=== PATIENT | male | born 1960 | race Caucasian/White ===

== ENCOUNTER 2016-06-07 11:05 | Emergency (ER) | payer OTHER ==
--- NOTE | 2016-06-07 12:25 | DIAGNOSTIC IMAGING REPORT ---
PROCEDURE: XR FEMUR - LEFT INDICATION: TRAUMA/INJURY TECHNIQUE: Four views of the left femur. COMPARISON: None available. FINDINGS: The femur fractures been fixed with an intramedullary susie and a pin through the femoral neck. Cerclage wires intact. Two screws are through the intramedullary susie in the distal femur. There is no fracture or dislocation. Alignment is anatomic. IMPRESSION: 1. No fracture or dislocation. Anatomic alignment status post fixation of fracture through the proximal femoral shaft.
--- NOTE | 2016-06-07 13:38 | ED ORDER SUMMARY ---
..... Patient: BALBIR SCHNEIDER OrderSheet [facility] VisitID: [id number] [address] [place] [address] 56y, M Registration Date/Time: 06/07/2016 ORDER SHEET Weight: 86.1 kg (stated) Allergies: No Known Drug Allergy GENERAL ORDERS: Femur Left Urgent (11:50 06/07/2016 Elizabeth Alberts) (k 11:51 TBergley) (12:40 LSullivan R.N.) MEDICATION ORDERS: Toradol IM 60 mg (NOW) (11:50 06/07/2016 Elizabeth Alberts) (12:40 LSaramivan R.N.) IV FLUIDS: ORDER SHEET NOTES: [Electronically signed by Anusha Martel R.N. (14:36 06/07/2016)] [Electronically signed by Lukas Zamora Dr. (19:34 06/08/2016)] [Electronically locked/signed by Ansuha Martel R.N. (14:36 06/07/2016)]
--- NOTE | 2016-06-07 13:38 | ED NURSING NOTES ---
Clinical Report - Nurses [place] [address] [place] [address] 06/07/2016 11:10 [id number] TRI[facility] Triage time 11:09. Acuity: LEVEL 4. Chief Complaint: INJURY TO THE LEFT HIP. NANI COMA SCORE: Nani Coma Scale: 15- eyes open spontaneously (4); best verbal response- oriented x 4 (5); best motor response- obeys commands (6). --11:16 Pari Moeller R.N. 11:09 06/07/16. BP: 160/85. HR: 76. RR: 18. O2 saturation: 95%. Temp: 98.4 F. Pain level now: 11/05. --11:16 Pari Moeller R.N. Weight: 86.1 kg stated. Height/Length: 69 inches Per Patient. BMI: 28.1. --11:12 Pari Moeller R.N. Medications OxyCODONE HCl Oral. --11:14 Pari Moeller R.N. Atenolol Oral not taking. Lisinopril Oral not taking. --11:14 Pari Moeller R.N. Allergies No Known Drug Allergy. --11:12 Pari Moeller R.N. History Arrived by EMS. Primary physician (August Buckley for orthopedics). ( Pt fell out of wheelchair, onto left hip, had left femur surgery 3 weeks ago and had nurse at [facility] clinic call 911.). This occurred yesterday. Treatment COAT PRESSER: None. (1/2 BEER). SOCIAL HX: Light tobacco smoker (cigarette)- less than 1/2 a pack per day. Alcohol use. Patient is a recovering alcoholic. (Pt has not drank since surgery date 3 weeks ago). No drug use. --11:16 Pari Moeller R.N. PROBLEMS: Hypertension. Heart Disease. --11:16 Pari Moeller R.N. ADDITIONAL SURGERIES: Appendectomy. --11:16 Pari Moeller R.N. Interventions ID band on patient. To room. --11:16 Pari Moeller R.N. PHYSICAL ASSESSMENT 11:16 06/07/16. GENERAL / NEURO / PSYCH: Oriented X 4. Alert. Appears anxious. --11:16 Pari Moeller R.N. 11:18 06/07/16. GENERAL / NEURO / PSYCH: ( no signs of abnormalities, rotation of left leg, or deformities). --11:18 Pari Moeller R.N. NURSING PROGRESS NOTES 11:17 06/07/16. Patient identifiers checked. Call light placed in reach. Bed placed in lowest position. Patient ready for evaluation- chart flagged. --11:17 Pari Moeller R.N. 12:40 06/07/2016 Toradol (Ketorolac Tromethamine) IM 60 mg given. Allergies verified and confirmed 5 rights. --12:40 Pari Moeller R.N. 12:15 06/07/16. BP: 174/83. HR: 78. RR: 18. O2 saturation: 96%. Pain level now: 710. --12:41 Pari Moeller R.N. 12:41 06/07/16. BP: 171/104. HR: 72. RR: 18. O2 saturation: 97%. --12:41 Pari Moeller R.N. 13:16 06/07/16. ( When pt falls asleep, sats drop to 80's, noticed pt has obstructive sleep apnea, positioned head and neck in better position for breathing.). --13:16 Pari Moeller R.N. 14:10. The patient is sleeping. Overall patient status is improved- he states feels better (called a friend in [place], [place] for a pick-up, wet clothes placed in a bag, father's pack scrubs put on assisted by EDT). GENERAL / NEURO / PSYCH: Alert. Oriented X 4. RESPIRATORY: No respiratory distress. SKIN: Skin is warm and dry. --14:34 Anusha Martel R.N. DISPOSITION / DISCHARGE Departure time: 1410. Condition at departure: stable. Fall risk assessment completed. Risk factors identified include patient impairment of mobility. Fall interventions initiated. Patient placed in wheelchair. No learning barriers present. Discharge instructions provided and reviewed with the patient. Patient verbalized understanding. Written instructions provided in Georgian. The patient was discharged home and accompanied by called for friend to pick him up. He left the Emergency Department in a wheelchair and via private vehicle. --14:32 Anusha Martel R.N. 14:10 06/07/16. BP: 133/92. HR: 103. RR: 18. O2 saturation: 98% on room air. Pain level now: 09/05. --14:32 Anusha Martel R.N. Locked/Released at 06/07/2016 14:36 by Anusha Martel R.N.
--- NOTE | 2016-06-07 13:38 | ED CLINICAL REPORT ---
Clinical Report - Physicians/Mid Levels [facility] [address] [place] [address] 06/07/2016 11:10 [id number] Time Seen: 11:10; initial patient contact. Arrived- By ambulance. Historian- patient. HISTORY OF PRESENT ILLNESS Chief Complaint: FALL. LEFT HIP INJURY. The injury occurred yesterday. Fell and landed on the ground (out of his wheel chair). Occurred at home. The patient complains of mild pain. No blow to the head, neck pain or loss of consciousness. REVIEW OF SYSTEMS No numbness, weakness or laceration. All systems otherwise negative, except as recorded above. PAST HISTORY Hypertension. Heart Disease. ADDITIONAL SURGERIES: Appendectomy. L Total hip. SOCIAL HISTORY Current every day smoker. Alcohol use. Patient is a recovering alcoholic. No drug use. ADDITIONAL NOTES The nursing notes have been reviewed with agreement regarding the chief complaint, PMH and patient medications and allergies. PHYSICAL EXAM Appearance: Alert. Oriented X3. No acute distress. Head: Head non-tender. No swelling of head. ENT: No dental injury. Neck: Painless ROM. Non-tender. CVS: Heart sounds normal. Rate normal. Rhythm normal. Respiratory: No respiratory distress. Breath sounds normal. Abdomen: No visible injury. Soft and nontender. Back: No tenderness. ROM normal. Skin: Skin intact. Skin warm and dry. Extremities: Left hip: mild tenderness. (well healed surgical wound). No erythema, swelling, laceration, abrasion or ecchymosis. Neuro: Oriented X 3. No motor deficit. No sensory deficit. LABS, X-RAYS, AND EKG Lt Femur X-ray: (No fracture or dislocation. Anatomic alignment status post fixation of fracture through the proximal femoral shaft.). Technique: good. The X-rays were independently viewed by me, interpreted by the radiologist and contemporaneously by me and discussed with the radiologist. Prior films were not available for comparison. Interpretation time: 12:38. PROGRESS AND PROCEDURES Disposition: Discharged home in good and improved condition. Condition: good. CLINICAL IMPRESSION Contusion to the left hip. INSTRUCTIONS Apply ice for 20 minutes four times a day. Don't apply ice directly to skin. No weight bearing left leg until released. Your Current Medications: CONTINUE TAKING THE FOLLOWING MEDICATIONS: Atenolol Oral : not taking. Lisinopril Oral : not taking. OxyCODONE HCl Oral. Follow-up: Follow up with your doctor in about four days. Call for an appointment. Blood pressure screening was not performed during this visit because the patient has an active diagnosis of hypertension. The patient should follow up with a primary care provider for blood pressure management. (Electronically signed by Lukas Zamora Dr. 06/08/2016 19:34)
--- NOTE | 2016-06-07 13:38 | ED ORDER SUMMARY ---
..... Patient: BALBIR SCHNEIDER OrderSheet [facility] VisitID: [id number] [address] [place] [address] 56y, M Registration Date/Time: 06/07/2016 ORDER SHEET Weight: 86.1 kg (stated) Allergies: No Known Drug Allergy GENERAL ORDERS: Femur Left Urgent (11:50 06/07/2016 Elizabeth Alberts) (k 11:51 TBergley) (12:40 LSullivan R.N.) MEDICATION ORDERS: Toradol IM 60 mg (NOW) (11:50 06/07/2016 Elizabeth Alberts) (12:40 LSaramivan R.N.) IV FLUIDS: ORDER SHEET NOTES: [Electronically signed by Anusha Martel R.N. (14:36 06/07/2016)] [Electronically signed by Lukas Zamora Dr. (19:34 06/08/2016)] [Electronically locked/signed by Anusha Martel R.N. (14:36 06/07/2016)]
--- NOTE | 2016-06-07 13:38 | ED NURSING NOTES ---
Clinical Report - Nurses [place] [address] [place] [address] 06/07/2016 11:10 [id number] TRI[facility] Triage time 11:09. Acuity: LEVEL 4. Chief Complaint: INJURY TO THE LEFT HIP. NANI COMA SCORE: Nani Coma Scale: 15- eyes open spontaneously (4); best verbal response- oriented x 4 (5); best motor response- obeys commands (6). --11:16 Pari Moeller R.N. 11:09 06/07/16. BP: 160/85. HR: 76. RR: 18. O2 saturation: 95%. Temp: 98.4 F. Pain level now: 11/05. --11:16 Pari Moeller R.N. Weight: 86.1 kg stated. Height/Length: 69 inches Per Patient. BMI: 28.1. --11:12 Pari Moeller R.N. Medications OxyCODONE HCl Oral. --11:14 Pari Moeller R.N. Atenolol Oral not taking. Lisinopril Oral not taking. --11:14 Pari Moeller R.N. Allergies No Known Drug Allergy. --11:12 Pari Moeller R.N. History Arrived by EMS. Primary physician (August Buckley for orthopedics). ( Pt fell out of wheelchair, onto left hip, had left femur surgery 3 weeks ago and had nurse at [facility] clinic call 911.). This occurred yesterday. Treatment ASSISTANT CENTER DIRECTOR: None. (1/2 BEER). SOCIAL HX: Light tobacco smoker (cigarette)- less than 1/2 a pack per day. Alcohol use. Patient is a recovering alcoholic. (Pt has not drank since surgery date 3 weeks ago). No drug use. --11:16 Pari Moeller R.N. PROBLEMS: Hypertension. Heart Disease. --11:16 Pari Moeller R.N. ADDITIONAL SURGERIES: Appendectomy. --11:16 Pari Moeller R.N. Interventions ID band on patient. To room. --11:16 Pari Moeller R.N. PHYSICAL ASSESSMENT 11:16 06/07/16. GENERAL / NEURO / PSYCH: Oriented X 4. Alert. Appears anxious. --11:16 Pari Moeller R.N. 11:18 06/07/16. GENERAL / NEURO / PSYCH: ( no signs of abnormalities, rotation of left leg, or deformities). --11:18 Pari Moeller R.N. NURSING PROGRESS NOTES 11:17 06/07/16. Patient identifiers checked. Call light placed in reach. Bed placed in lowest position. Patient ready for evaluation- chart flagged. --11:17 Pari Moeller R.N. 12:40 06/07/2016 Toradol (Ketorolac Tromethamine) IM 60 mg given. Allergies verified and confirmed 5 rights. --12:40 Pari Moeller R.N. 12:15 06/07/16. BP: 174/83. HR: 78. RR: 18. O2 saturation: 96%. Pain level now: 710. --12:41 Pari Moeller R.N. 12:41 06/07/16. BP: 171/104. HR: 72. RR: 18. O2 saturation: 97%. --12:41 aPri Moeller R.N. 13:16 06/07/16. ( When pt falls asleep, sats drop to 80's, noticed pt has obstructive sleep apnea, positioned head and neck in better position for breathing.). --13:16 Pari Moeller R.N. 14:10. The patient is sleeping. Overall patient status is improved- he states feels better (called a friend in [place], [place] for a pick-up, wet clothes placed in a bag, father's pack scrubs put on assisted by EDT). GENERAL / NEURO / PSYCH: Alert. Oriented X 4. RESPIRATORY: No respiratory distress. SKIN: Skin is warm and dry. --14:34 Anusha Martel R.N. DISPOSITION / DISCHARGE Departure time: 1410. Condition at departure: stable. Fall risk assessment completed. Risk factors identified include patient impairment of mobility. Fall interventions initiated. Patient placed in wheelchair. No learning barriers present. Discharge instructions provided and reviewed with the patient. Patient verbalized understanding. Written instructions provided in Thai. The patient was discharged home and accompanied by called for friend to pick him up. He left the Emergency Department in a wheelchair and via private vehicle. --14:32 Anusha Martel R.N. 14:10 06/07/16. BP: 133/92. HR: 103. RR: 18. O2 saturation: 98% on room air. Pain level now: 09/05. --14:32 Anusha Martel R.N. Locked/Released at 06/07/2016 14:36 by Anusha Martel R.N.
--- NOTE | 2016-06-07 13:38 | ED CLINICAL REPORT ---
Clinical Report - Physicians/Mid Levels [facility] [address] [place] [address] 06/07/2016 11:10 [facility]IR [facility]ID[id number] Time Seen: 11:10; initial patient contact. Arrived- By ambulance. Historian- patient. HISTORY OF PRESENT ILLNESS Chief Complaint: FALL. LEFT HIP INJURY. The injury occurred yesterday. Fell and landed on the ground (out of his wheel chair). Occurred at home. The patient complains of mild pain. No blow to the head, neck pain or loss of consciousness. REVIEW OF SYSTEMS No numbness, weakness or laceration. All systems otherwise negative, except as recorded above. PAST HISTORY Hypertension. Heart Disease. ADDITIONAL SURGERIES: Appendectomy. L Total hip. SOCIAL HISTORY Current every day smoker. Alcohol use. Patient is a recovering alcoholic. No drug use. ADDITIONAL NOTES The nursing notes have been reviewed with agreement regarding the chief complaint, PMH and patient medications and allergies. PHYSICAL EXAM Appearance: Alert. Oriented X3. No acute distress. Head: Head non-tender. No swelling of head. ENT: No dental injury. Neck: Painless ROM. Non-tender. CVS: Heart sounds normal. Rate normal. Rhythm normal. Respiratory: No respiratory distress. Breath sounds normal. Abdomen: No visible injury. Soft and nontender. Back: No tenderness. ROM normal. Skin: Skin intact. Skin warm and dry. Extremities: Left hip: mild tenderness. (well healed surgical wound). No erythema, swelling, laceration, abrasion or ecchymosis. Neuro: Oriented X 3. No motor deficit. No sensory deficit. LABS, X-RAYS, AND EKG Lt Femur X-ray: (No fracture or dislocation. Anatomic alignment status post fixation of fracture through the proximal femoral shaft.). Technique: good. The X-rays were independently viewed by me, interpreted by the radiologist and contemporaneously by me and discussed with the radiologist. Prior films were not available for comparison. Interpretation time: 12:38. PROGRESS AND PROCEDURES Disposition: Discharged home in good and improved condition. Condition: good. CLINICAL IMPRESSION Contusion to the left hip. INSTRUCTIONS Apply ice for 20 minutes four times a day. Don't apply ice directly to skin. No weight bearing left leg until released. Your Current Medications: CONTINUE TAKING THE FOLLOWING MEDICATIONS: Atenolol Oral : not taking. Lisinopril Oral : not taking. OxyCODONE HCl Oral. Follow-up: Follow up with your doctor in about four days. Call for an appointment. Blood pressure screening was not performed during this visit because the patient has an active diagnosis of hypertension. The patient should follow up with a primary care provider for blood pressure management. (Electronically signed by Lukas Zamora Dr. 06/08/2016 19:34)
--- NOTE | 2016-06-08 19:34 | ED DISCHARGE INSTRUCTIONS ---
Patient: BALBIR SCHNEIDER General Instructions [facility] VisitID: [id number] [place] [address] 56y, M Registration Date/Time: 06/07/2016 Contusion to the left hip. INSTRUCTIONS Apply ice for 20 minutes four times a day. Don't apply ice directly to skin. No weight bearing left leg until released. Your Current Medications: CONTINUE TAKING THE FOLLOWING MEDICATIONS: Atenolol Oral : not taking. Lisinopril Oral : not taking. OxyCODONE HCl Oral. Follow-up: Follow up with your doctor in about four days. Call for an appointment. Blood pressure screening was not performed during this visit because the patient has an active diagnosis of hypertension. The patient should follow up with a primary care provider for blood pressure management. ADDITIONAL INFORMATION Contusion,Soft Tissue You have a CONTUSION, which is a bruise with swelling and some bleeding under the skin. There are no broken bones. This injury takes a few days to a few weeks to heal. Home Care: 1) Keep the injured part elevated to reduce pain and swelling. This is especially important during the first 48 hours. 2) Make an ice pack (ice cubes in a plastic bag, wrapped in a towel) and apply for 20 minutes every 1-2 hours the first day. Continue this 3-4 times a day until the pain and swelling goes away. 3) You may use acetaminophen (Tylenol) or ibuprofen (Motrin, Advil) to control pain, unless another pain medicine was prescribed. [ NOTE : If you have chronic liver or kidney disease or ever had a stomach ulcer or GI bleeding, talk with your doctor before using these medicines.] Follow Up with your doctor or this facility if you are not improving within the next THREE days. [NOTE: If X-rays were taken, they will be reviewed by a radiologist. You will be notified of any new findings that may affect your care.] Get Prompt Medical Attention if any of the following occur: -- Pain or swelling increases -- Injured arm or leg becomes cold, blue, numb or tingly -- Redness, warmth or drainage from the skin You have been given the following additional information: Contusion, Soft Tissue No weight bearing left leg until released. (Electronically signed by Lukas Zamora Dr. 06/08/2016 19:34)
--- NOTE | 2016-06-08 19:34 | ED MED RECONCILIATION SUMMARY ---
Patient: BALBIR SCHNEIDER Medication Reconciliation Report [facility] VisitID: [id number] [address] [place] [address] 56y, M Registration Date/Time: 06/07/2016 Weight: 86.1 kg Height/Length: 69 in. BMI: 28.1 ALLERGIES: No Known Drug Allergy The patient's Home Medications are listed below: CONTINUE TAKING THE FOLLOWING MEDICATIONS: Atenolol Oral not taking Lisinopril Oral not taking OxyCODONE HCl Oral The source(s) of the original Home Medication information: Not obtained. The following Medications were given to the patient in the Emergency Department: Toradol [IM] IM 60 mg, administered: 06/07/2016 12:40:00 PM The following Medications were prescribed to the patient: None.
--- NOTE | 2016-06-08 19:34 | ED MAR SUMMARY ---
..... Medication Administration Record [facility] [address] [place] [address] Patient: BALBIR SCHNEIDER Visit ID: [id number] 56y, M Weight: 86.1 kg Height/Length: 69 in BMI: 28.1 ALLERGIES: No Known Drug Allergy Given 12:40 06/07/2016 Pari Moeller R.N. Medication Administered: TORADOL [IM] (KETOROLAC TROMETHAMINE), Dose: 60 mg IM. Medication Ordered: Toradol IM 60 mg (NOW).
--- NOTE | 2016-06-08 19:34 | ED MED RECONCILIATION SUMMARY ---
Patient: BALBIR SCHNEIDER Medication Reconciliation Report [facility] VisitID: [id number] [address] [place] [address] 56y, M Registration Date/Time: 06/07/2016 Weight: 86.1 kg Height/Length: 69 in. BMI: 28.1 ALLERGIES: No Known Drug Allergy The patient's Home Medications are listed below: CONTINUE TAKING THE FOLLOWING MEDICATIONS: Atenolol Oral not taking Lisinopril Oral not taking OxyCODONE HCl Oral The source(s) of the original Home Medication information: Not obtained. The following Medications were given to the patient in the Emergency Department: Toradol [IM] IM 60 mg, administered: 06/07/2016 12:40:00 PM The following Medications were prescribed to the patient: None.
--- NOTE | 2016-06-08 19:34 | ED MAR SUMMARY ---
..... Medication Administration Record [facility] [address] [place] [address] Patient: BALBIR SCHNEIDER Visit ID: [id number] 56y, M Weight: 86.1 kg Height/Length: 69 in BMI: 28.1 ALLERGIES: No Known Drug Allergy Given 12:40 06/07/2016 Pari Moeller R.N. Medication Administered: TORADOL [IM] (KETOROLAC TROMETHAMINE), Dose: 60 mg IM. Medication Ordered: Toradol IM 60 mg (NOW).
== END 2016-06-07 14:10 | disposition home or self-care (01) ==
LOC: ED SRH 11:05
DX: S70.02XA Contusion of left hip, initial encounter (principal); Y92.009 Unspecified place in unspecified non-institutional (private) residence as the place of occurrence of the external cause; W05.0XXA Fall from non-moving wheelchair, initial encounter; Y93.9 Activity, unspecified; Y99.9 Unspecified external cause status; Z98.890 Other specified postprocedural states; Z79.891 Long term (current) use of opiate analgesic